=== PATIENT | female | born 1965 | race Caucasian/White ===

== ENCOUNTER 2019-04-25 02:42 | Inpatient (IN) | payer OTHER ==
[2019-04-25] MEDS ORDERED: LIDOCAINE 5% TOPICAL PATCH TP ONE (02:51)
[2019-04-25] MEDS ORDERED: KETOROLAC TROMETHAMINE 15 MG/ML VIAL IVPUSH ONE (02:59)
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
[2019-04-25] MEDS ORDERED: KETOROLAC TROMETHAMINE 15 MG/ML VIAL ONE (03:23)
[2019-04-25 03:30] LABS: BASO % 0.3 % (0-2.0); EOS % 0.9 % (0-4.5); HEMATOCRIT 49.4 % (32.4-45.2); HEMOGLOBIN 17.2 GM/dL (10.7-15.3); LYMPH % 12.5 % (8-40); MCH 32.2 pg (25.7-33.7); MCHC 34.7 g/dl (32.0-36.0); MEAN CELL VOLUME 92.7 fl (80-96); MONO % 7.4 % (3.8-10.2); NEUT % 78.9 % (42.8-82.8); PLATELET COUNT 229 K/MM3 (134-434); RBC 5.33 M/mm3 (3.60-5.2); RDW 15.9 % (11.6-15.6); WHITE BLOOD COUNT 12.3 K/mm3 (4.0-10.0)
--- NOTE | 2019-04-25 03:38 | PDOC ---
Attending Attestation - Resident Resident Name: Gianni Wright - ED Attending Attestation I have performed the following: I have examined & evaluated the patient, The case was reviewed & discussed with the resident, I agree w/resident's findings & plan - HPI HPI: 05/06/19 20:06 Amara Christy is a 53F HTN, HLD, pre-DM, asthma presenting with R flank pain. - Physicial Exam PE: 05/06/19 20:06 Agree with resident exam - Medical Decision Making 04/25/19 03:58 Pt will be admitted for pyelo and UTI and flank pain and nausea and IV antibiotics. Questionable rupture of her calyx. Please eval with renal consultation. 04/25/19 05:17 Pt has right hydronephrosis and pyelo and stranding around the kidney 04/25/19 05:19 Patient Name: AMARA CHRISTY THIS IS A PRELIMINARY REPORT FROM [facility]AG[facility]EL [facility]SEL[facility] DATE OF SERVICE: 2019-04-25 03:21:51 IMAGES: [id number] EXAM: CT abdomen and pelvis without contrast HISTORY: Rule out nephrolithiasis COMPARISON: None. FINDINGS: Lung bases are clear. The visualized cardiac chambers are normal size and configuration. Mild right hydronephrosis is noted secondary to 2 mm distal ureteral stone. Moderate perinephric edema could indicate a ruptured calyx but there is no loculated urinoma. No other stones are identified. Normal liver, gallbladder, pancreas, spleen, adrenal glands and left kidney. The stomach and abdominal small and large bowel are normal. There is no aortic aneurysm. There is no significant retroperitoneal lymphadenopathy. The pelvic small and large bowel are normal. There is no evidence of appe ndicitis. The uterus and adnexal structures are normal. Urinary bladder is unremarkable. There is no pelvic free fluid. No discrete pelvic lymphadenopathy is identified. IMPRESSION: Mild right hydronephrosis secondary to a 2 mm distal ureteral stone with possible ruptured calyx. Discharge - Discharge Information Problems reviewed: Yes Clinical Impression/Diagnosis: Acute flank pain, Ureteral calculus, Pyelonephritis Condition: Stable Disposition: HOME - Follow up/Referral - Patient Discharge Instructions - Post Discharge Activity
[2019-04-25 03:47] LABS: INR 0.87 (0.83-1.09); PROTHROMBIN TIME (PATIENT) 10.2 SEC (9.7-13.0)
[2019-04-25] MEDS ORDERED: LACTATED RINGERS SOLUTION 1000 ML INFUS.BAG IV ONE (03:47)
[2019-04-25 03:58] LABS: EPI CELLS 17 /HPF (0-5/HPF); HYALINE CASTS 0 /lpf (0-8); URINE APPEARANCE CLEAR; URINE BACTERIA 144 /hpf (NEGATIVE); URINE BILIRUBIN NEGATIVE (NEGATIVE); URINE COLOR YELLOW; URINE GLUCOSE (UA) NEGATIVE (NEGATIVE); URINE KETONE NEGATIVE (NEGATIVE); URINE LEUK ESTERASE NEGATIVE (NEGATIVE); URINE NITRITE NEGATIVE (NEGATIVE); URINE PROTEIN NEGATIVE (NEGATIVE); URINE RBC 930 /hpf (0-4); URINE UROBILINOGEN 0.2 mg/dL (0.2-1.0); URINE WBC 5 /hpf (0-5)
[2019-04-25 03:59] LABS: ALBUMIN 4.1 g/dl (3.4-5.0); BILIRUBIN,TOTAL 0.8 mg/dL (0.2-1); BLOOD UREA NITROGEN 25.7 mg/dL (7-18); CREATININE 1.3 mg/dL (0.55-1.3); POTASSIUM 3.6 mmol/L (3.5-5.1); TOT PROT 8.3 g/dl (6.4-8.2)
[2019-04-25] MEDS ORDERED: SODIUM CHLORIDE 1,000 ML IV STA (04:00)
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
[2019-04-25] MEDS ORDERED: ACETAMINOPHEN 325 MG TABLET (FP) PO PRN (06:01)
[2019-04-25] MEDS ORDERED: ALBUTEROL SO4 2.5/IPRATROPIUM 0.5 INH SOL 3 ML VIAL.NEB. NEB PRN (06:10)
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
[2019-04-25 08:26] VITALS: BMI 31.5
[2019-04-25 08:53] LABS: BASO % 0.3 % (0-2.0); EOS % 0.7 % (0-4.5); HEMATOCRIT 45.1 % (32.4-45.2); HEMOGLOBIN 15.3 GM/dL (10.7-15.3); LYMPH % 20.6 % (8-40); MCH 31.5 pg (25.7-33.7); MCHC 33.9 g/dl (32.0-36.0); MEAN PLT VOLUME 7.9 fl (7.5-11.1); MONO % 8.8 % (3.8-10.2); NEUT % 69.6 % (42.8-82.8); PLATELET COUNT 203 K/MM3 (134-434); RBC 4.85 M/mm3 (3.60-5.2); RDW 15.6 % (11.6-15.6); WHITE BLOOD COUNT 9.1 K/mm3 (4.0-10.0)
--- NOTE | 2019-04-25 08:55 | PN ---
Teaching Attending Note Name of Resident: Nico Cox ATTENDING PHYSICIAN STATEMENT I saw and evaluated the patient. I reviewed the resident's note and discussed the case with the resident. I agree with the resident's findings and plan as documented. SUBJECTIVE:Patient feels improved less flank pain still c/o hematuria OBJECTIVE: Vital Signs Temperature 98.4 F 04/25/19 08:16 Pulse Rate 79 04/25/19 08:16 Respiratory Rate 20 04/25/19 08:16 Blood Pressure 149/75 04/25/19 08:16 O2 Sat by Pulse Oximetry (%) 96 04/25/19 08:34 HEENT: Mm moist, no anemia NECK: No JVD No Bruit CHEST: CTA B/L CVS: S1S2 R no m/g/r ABD: Non tender BS + EXT: No CVA tenderness, No Edema feet, Pulses + SMALL OFFSET PRINTER: AOX3 non focal CBC, BMP 04/25/19 08:35 Active Medications Acetaminophen (Tylenol -) 650 mg PO Q4H PRN PRN Reason: PAIN LEVEL 6-10 Albuterol/Ipratropium (Duoneb -) 1 amp NEB RQID PRN PRN Reason: ASTHMA Atorvastatin Calcium (Lipitor -) 10 mg PO HS [facility] Enoxaparin Sodium (Lovenox -) 40 mg SQ DAILY JEREMIAH Hydrochlorothiazide (Hctz -) 12.5 mg PO DAILY JEREMIAH Sodium Chloride (Normal Saline -) 1,000 mls @ 75 mls/hr IV ASDIR JEREMIAH Levofloxacin (Levaquin 500 Mg Premixed Ivpb -) 500 mg in 100 mls @ 100 mls/hr IVPB ONCE ONE; Protocol Stop: 04/26/19 06:59 Lisinopril (Prinivil) 10 mg PO HS JEREMIAH Tamsulosin HCl (Flomax -) 0.4 mg PO DAILY@0830 [facility] ASSESSMENT AND PLAN:53 yrs old F with H/O Mild intermittent asthma nd HTN present with Flank pain hematuria Problem List - Problems (1) Acute flank pain Assessment/Plan: Due to renal calculi improved will cont IV Hydration Code(s): R10.9 - UNSPECIFIED ABDOMINAL PAIN (2) Ureteral calculus Assessment/Plan: 2 mm evaluted by Gu recommonded Flomax and Hydration Code(s): N20.1 - CALCULUS OF URETER (3) HTN (hypertension) Assessment/Plan: Cont home meds Problems reviewed: Yes Code(s): I10 - ESSENTIAL (PRIMARY) HYPERTENSION
[2019-04-25] MEDS: LORATADINE 10 MG TABLET PO SCH (09:15)
[2019-04-25] MEDS: TAMSULOSIN HCL 0.4 MG CAP PO SCH (09:15)
[2019-04-25] MEDS: ENOXAPARIN NA (PORCINE) 40 MG/0.4 ML DISP.SYRIN SQ SCH (09:15)
[2019-04-25] MEDS: SODIUM CHLORIDE 1,000 ML IV SCH (09:22)
[2019-04-25 09:28] LABS: ALBUMIN 3.4 g/dl (3.4-5.0); CALCIUM 8.5 mg/dL (8.5-10.1); CREATININE 1.4 mg/dL (0.55-1.3); MAGNESIUM 1.9 mg/dL (1.8-2.4); POTASSIUM 3.7 mmol/L (3.5-5.1)
[2019-04-25] MEDS ORDERED: HYDROCHLOROTHIAZIDE 12.5 MG CAPSULE (FP) PO SCH (10:00)
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
--- NOTE | 2019-04-25 15:15 | CON.GU ---
Consult Consult Specialty:: Referred by:: medicine Reason for Consultation:: ureteral calculus, renal colic - History of Present Illness Chief Complaint: ureteral calculus, renal colic History of Present Illness: 53 year old woman with 1 day of flank pain and nausea. CT scan with mild hydro and a 2mm UVJ stone. No evidence of infection or sepsis. This his her first stone. - History Source History Provided By: Patient Limitations to Obtaining History: No Limitations - Past Medical History Pulmonary: Yes: Asthma, Bronchitis, COPD. No: Cancer, O2 Dependent, Pneumonia, Previously Intubated, Pulmonary Embolus, Pulmonary Fibrosis Renal/: No: Renal Failure, Renal Inusuff, BPH, Cancer, Hematuria, Hemodialysis, Neurogenic Bladder, Renal Calculi, UTI, Other ...: No - Alcohol/Substance Use Hx Alcohol Use: No - Smoking History Smoking history: Current every day smoker Have you smoked in the past 12 months: Yes Aproximately how many cigarettes per day: 10 Home Medications - Allergies Allergies/Adverse Reactions: Allergies Allergy/AdvReac Type Severity Reaction Status Date / Time Penicillins Allergy Rash Verified 04/25/19 02:43 tetracycline Allergy Rash Verified 04/25/19 02:43 - Home Medications Home Medications: Ambulatory Orders Atorvastatin Ca [Lipitor] 10 mg PO HS 04/26/17 Cetirizine HCl [All Day Allergy] 10 mg PO ASDIR 04/26/17 Hydrochlorothiazide [Hctz -] 25 mg PO DAILY 04/26/17 Salmeterol/Fluticasone [Advair 100Mcg/50Mcg -] 1 inh IH ASDIR 04/26/17 Fluticasone/Vilanterol [Breo Ellipta 200-25 Mcg INH] 1 each IH DAILY 04/25/19 Latanoprost 1 gm OU DAILY 04/25/19 Review of Systems - Review of Systems Genitourinary: reports: Flank Pain Physical Exam- Vital Signs: Vital Signs Temperature 98.4 F 04/25/19 08:16 Pulse Rate 79 04/25/19 08:16 Respiratory Rate 20 04/25/19 08:16 Blood Pressure 149/75 04/25/19 08:16 O2 Sat by Pulse Oximetry (%) 96 04/25/19 08:34 Renal/: No: CVA Tenderness - Left, CVA Tenderness - Right Kidneys: No: Flank Pain Left, FLank Pain Right Labs: CBC, BMP 04/25/19 08:35 04/25/19 08:35 Imaging - Results Cat Scan: Report Reviewed Problem List - Problems (1) Ureteral calculus Assessment/Plan: based on size and position, the stone has a very high likelihood of self passage. no infection or sepsis. recommend hydration, flomax. pain meds. Code(s): N20.1 - CALCULUS OF URETER
--- NOTE | 2019-04-25 15:48 | PN ---
Physical Exam: SUBJECTIVE: Patient seen and examined at bedside. Reports improvement in pain OBJECTIVE: Vital Signs Period Temp Pulse Resp BP Sys/Carnes Pulse Ox Last 24 Hr 97.1 F-98.4 F 79-93 17-20 117-153/70-93 96-98 GENERAL: A&Ox3, no acute distress EYES: PERRLA, EOMI ENT: Moist mucus membranes NECK: No JVD LUNGS: CTA, no wheezes HEART: RRR, no murmurs ABDOMEN: Soft, nontender, BS present MUSCULOSKELETAL: Mild R sided CVA tenderness EXTREMITIES: 2+ pulses, no edema. NEUROLOGICAL: Cranial nerves II-XII intact. Laboratory Results - last 24 hr 04/25/19 04/25/19 04/25/19 03:20 03:20 03:20 WBC 12.3 H RBC 5.33 H Hgb 17.2 H Hct 49.4 H MCV 92.7 MCH 32.2 MCHC 34.7 RDW 15.9 H Plt Count 229 MPV 8.0 Absolute Neuts (auto) 9.7 H Neutrophils % 78.9 Lymphocytes % 12.5 Monocytes % 7.4 Eosinophils % 0.9 Basophils % 0.3 Nucleated RBC % 0 PT with INR 10.20 INR 0.87 Sodium Potassium Chloride Carbon Dioxide Anion Gap BUN Creatinine Est GFR (CKD-EPI)AfAm Est GFR (CKD-EPI)NonAf Random Glucose Calcium Phosphorus Magnesium Total Bilirubin AST ALT Alkaline Phosphatase Total Protein Albumin Urine Color Yellow Urine Appearance Clear Urine pH 5.0 Ur Specific [place] 1.019 Urine Protein Negative Urine Glucose (UA) Negative Urine Ketones Negative Urine Blood 3+ H Urine Nitrite Negative Urine Bilirubin Negative Urine Urobilinogen 0.2 Ur Leukocyte Esterase Negative Urine WBC (Auto) 5 Urine RBC (Auto) 930 Urine Casts (Auto) 0 U Epithel Cells (Auto) 17 Urine Bacteria (Auto) 144 04/25/19 04/25/19 04/25/19 03:20 08:35 08:35 WBC 9.1 RBC 4.85 Hgb 15.3 Hct 45.1 MCV 93.0 MCH 31.5 MCHC 33.9 RDW 15.6 Plt Count 203 MPV 7.9 Absolute Neuts (auto) 6.4 Neutrophils % 69.6 Lymphocytes % 20.6 D Monocytes % 8.8 Eosinophils % 0.7 Basophils % 0.3 Nucleated RBC % 0 PT with INR INR Sodium 136 135 L Potassium 3.6 3.7 Chloride 99 101 Carbon Dioxide 26 26 Anion Gap 11 9 BUN 25.7 H 26.0 H Creatinine 1.3 1.4 H Est GFR (CKD-EPI)AfAm 53.86 49.25 Est GFR (CKD-EPI)NonAf 46.47 42.49 Random Glucose 116 H 107 H Calcium 9.0 8.5 Phosphorus 4.0 Magnesium 1.9 Total Bilirubin 0.8 1.0 AST 20 17 ALT 19 13 Alkaline Phosphatase 121 H 103 Total Protein 8.3 H 7.0 Albumin 4.1 3.4 Urine Color Urine Appearance Urine pH Ur Specific [place] Urine Protein Urine Glucose (UA) Urine Ketones Urine Blood Urine Nitrite Urine Bilirubin Urine Urobilinogen Ur Leukocyte Esterase Urine WBC (Auto) Urine RBC (Auto) Urine Casts (Auto) U Epithel Cells (Auto) Urine Bacteria (Auto) Active Medications Generic Name Dose Route Start Last Admin Trade Name Freq PRN Reason Stop Dose Admin Acetaminophen 650 mg 04/25/19 06:01 Tylenol - PO Q4H PRN PAIN LEVEL 6-10 Albuterol/Ipratropium 1 amp 04/25/19 06:10 Duoneb - NEB RQID PRN ASTHMA Atorvastatin Calcium 10 mg 04/25/19 22:00 Lipitor - PO HS JEREMIAH Enoxaparin Sodium 40 mg 04/25/19 10:00 04/25/19 09:15 Lovenox - SQ 40 mg DAILY JEREMIAH Administration Hydrochlorothiazide 12.5 mg 04/25/19 10:00 04/25/19 09:15 Hctz - PO 12.5 mg DAILY JEREMIAH Administration Sodium Chloride 1,000 mls @ 75 mls/hr 04/25/19 06:15 04/25/19 09:22 Normal Saline - IV 75 mls/hr ASDIR JEREMIAH Administration Levofloxacin 500 mg in 100 mls @ 100 mls/hr 04/26/19 06:00 Levaquin 500 Mg Premixed Ivpb - IVPB 04/26/19 06:59 ONCE ONE Protocol Lisinopril 10 mg 04/25/19 22:00 Prinivil PO HS JEREMIAH Loratadine 10 mg 04/25/19 10:00 04/25/19 09:15 Claritin - PO 10 mg DAILY JEERMIAH Administration Tamsulosin HCl 0.4 mg 04/25/19 08:30 04/25/19 09:15 Flomax - PO 0.4 mg DAILY@0830 [facility] Administration ASSESSMENT/PLAN: 53 year old female with hypertension, hyperlipidemia, pre-diabetes, asthma, glaucoma, cervical radiculopathy here for R sided nephrolithiasis #Nephrolithiasis: improved today, 2mm stone -urology consult appreciated -CT significant for moderate RIGHT hydronephrosis 2mm distal ureteral stone and possible ruptured calyx; fat stranding at RIGHT kidney -continue flomax -continue fluids -continue pain control -continue levaquin for now -monitor creatinine #Hypertension -continue lisinopril #Hyperlipidemia -continue atorvastatin #Pre-Diabetes - monitor #FEN -fluids @ 75cc/hr -lytes normal -diet ordered #Prophylaxis -lovenox #DIsposition -anticipate DC tomorrow pending creatinine Visit type - Emergency Visit Emergency Visit: No - New Patient This patient is new to me today: Yes Date on this admission: 04/25/19 - Critical Care Critical Care patient: No ATTENDING PHYSICIAN STATEMENT I saw and evaluated the patient. I reviewed the resident's note and discussed the case with the resident. I agree with the resident's findings and plan as documented. SUBJECTIVE: OBJECTIVE: ASSESSMENT AND PLAN:
--- NOTE | 2019-04-25 16:08 | EKG ---
Test Reason : Blood Pressure : / mmHG Vent. Rate : 095 BPM Atrial Rate : 095 BPM P-R Int : 188 ms QRS Dur : 078 ms QT Int : 372 ms P-R-T Axes : 054 -07 075 degrees QTc Int : 467 ms NORMAL SINUS RHYTHM POSSIBLE LEFT ATRIAL ENLARGEMENT BORDERLINE ECG NO PREVIOUS ECGS AVAILABLE Confirmed by ADOLPH DICKINSON, JANETH ([id number]) on 04/25/2019 4:07:54 PM Referred By: Confirmed By:JANETH FARFAN MD
[2019-04-25] MEDS ORDERED: LISINOPRIL 10 MG TABLET (FP) PO SCH (22:00)
[2019-04-25] MEDS ORDERED: LIDOCAINE PATCH REMOVAL MC SCH (22:00)
[2019-04-25] MEDS ORDERED: ATORVASTATIN CA 10 MG TABLET (FP) PO SCH (22:00)
[2019-04-26] MEDS: SODIUM CHLORIDE 1,000 ML IV SCH (06:37)
[2019-04-26] MEDS: TAMSULOSIN HCL 0.4 MG CAP PO SCH (08:20)
[2019-04-26 09:44] LABS: BASO % 0.4 % (0-2.0); HEMOGLOBIN 14.2 GM/dL (10.7-15.3); LYMPH % 23.7 % (8-40); MCH 31.8 pg (25.7-33.7); MCHC 33.8 g/dl (32.0-36.0); MEAN CELL VOLUME 94.1 fl (80-96); MEAN PLT VOLUME 7.9 fl (7.5-11.1); MONO % 10.8 % (3.8-10.2); NEUT % 62.1 % (42.8-82.8); PLATELET COUNT 175 K/MM3 (134-434); RBC 4.46 M/mm3 (3.60-5.2); RDW 15.4 % (11.6-15.6); WHITE BLOOD COUNT 5.3 K/mm3 (4.0-10.0)
[2019-04-26] MEDS: LORATADINE 10 MG TABLET PO SCH (09:45)
[2019-04-26] MEDS: ENOXAPARIN NA (PORCINE) 40 MG/0.4 ML DISP.SYRIN SQ SCH (09:45)
[2019-04-26 10:51] LABS: BLOOD UREA NITROGEN 21.9 mg/dL (7-18); CALCIUM 8.2 mg/dL (8.5-10.1); CREATININE 1.1 mg/dL (0.55-1.3); POTASSIUM 3.1 mmol/L (3.5-5.1)
[2019-04-26] MEDS ORDERED: POTASSIUM CHLORIDE TABS 20 MEQ TABLET.ER (FP) PO ONE (11:00)
[2019-04-26] MEDS ORDERED: PT OWN MED DRAWER 7, Y5N ONE (11:08)
[2019-04-26 12:01] VITALS: BP 114/69; PULSE 69; TEMP 97.9
[2019-04-26] MEDS ORDERED: ALBUTEROL SO4 2.5/IPRATROPIUM 0.5 INH SOL 3 ML VIAL.NEB. NEB PRN (12:09)
--- NOTE | 2019-04-26 12:09 | PN ---
Progress Note (short form) - Note Progress Note: Feels a little better today. [place] like she was wheezing overnight, now feels better (Did not have Breo). Intake & Output 04/23/19 04/24/19 04/25/19 04/26/19 23:59 23:59 23:59 23:59 Intake Total 1700 Output Total 700 Balance 1000 Weight 172 lb 4 oz Last Vital Signs Temp Pulse Resp BP Pulse Ox 97.9 F 69 20 114/69 96 04/26/19 09:00 04/26/19 09:00 04/26/19 09:00 04/26/19 09:00 04/26/19 09:00 Active Medications Acetaminophen (Tylenol -) 650 mg PO Q4H PRN PRN Reason: PAIN LEVEL 6-10 Albuterol/Ipratropium (Duoneb -) 1 amp NEB RQID PRN PRN Reason: ASTHMA Atorvastatin Calcium (Lipitor -) 10 mg PO [facility] Last Admin: 04/25/19 21:55 Dose: 10 mg Documented by: Enoxaparin Sodium (Lovenox -) 40 mg SQ DAILY [facility] Last Admin: 04/26/19 09:45 Dose: 40 mg Documented by: Sodium Chloride (Normal Saline -) 1,000 mls @ 75 mls/hr IV ASDIR [facility] Last Admin: 04/26/19 06:37 Dose: 75 mls/hr Documented by: Lisinopril (Prinivil) 10 mg PO [facility] Last Admin: 04/25/19 21:56 Dose: Not Given Documented by: Loratadine (Claritin -) 10 mg PO DAILY [facility] Last Admin: 04/26/19 09:45 Dose: 10 mg Documented by: Tamsulosin HCl (Flomax -) 0.4 mg PO DAILY@0830 [facility] Last Admin: 04/26/19 08:20 Dose: 0.4 mg Documented by: Constitutional: Yes: No Distress, Obese Eyes: Yes: Conjunctiva Clear, EOM Intact HENT: Yes: Atraumatic, Normocephalic Neck: Yes: Supple, Trachea Midline Cardiovascular: Yes: Regular Rate and Rhythm Respiratory: No: Accessory Muscle Use, Rales, Rhonchi, SOB, SOB on Exertion, Stridor, Tachypnea, Wheezes ...Inspection: Yes: WNL ...Clubbing: No Gastrointestinal: Yes: Normal Bowel Sounds, Soft. No: Rectal Bleeding Renal/: Yes: CVA Tenderness - Right Musculoskeletal: Yes: WNL Extremities: Yes: WNL Edema: No Peripheral Pulses WNL: Yes Integumentary: Yes: WNL Neurological: Yes: WNL, Alert, Oriented ...Motor Strength: WNL Psychiatric: Yes: WNL, Alert, Oriented Labs: Laboratory Results - last 24 hr 04/26/19 04/26/19 09:20 09:20 WBC 5.3 RBC 4.46 Hgb 14.2 Hct 42.0 MCV 94.1 MCH 31.8 MCHC 33.8 RDW 15.4 Plt Count 175 MPV 7.9 Absolute Neuts (auto) 3.3 Neutrophils % 62.1 Lymphocytes % 23.7 Monocytes % 10.8 H Eosinophils % 3.0 D Basophils % 0.4 Nucleated RBC % 0 Sodium 138 Potassium 3.1 L Chloride 103 Carbon Dioxide 28 Anion Gap 7 L BUN 21.9 H Creatinine 1.1 Est GFR (CKD-EPI)AfAm 65.92 Est GFR (CKD-EPI)NonAf 56.87 Random Glucose 141 H Calcium 8.2 L Problem List - Problems (1) COPD (chronic obstructive pulmonary disease) Code(s): J44.9 - CHRONIC OBSTRUCTIVE PULMONARY DISEASE, UNSPECIFIED (2) Smoker Code(s): F17.200 - NICOTINE DEPENDENCE, UNSPECIFIED, UNCOMPLICATED (3) Acute flank pain Code(s): R10.9 - UNSPECIFIED ABDOMINAL PAIN (4) HTN (hypertension) Code(s): I10 - ESSENTIAL (PRIMARY) HYPERTENSION (5) Pyelonephritis Code(s): N12 - TUBULO-INTERSTITIAL NEPHRITIS, NOT SPCF ACUTE OR CHRONIC (6) Ureteral calculus Code(s): N20.1 - CALCULUS OF URETER Assessment/Plan BD TX ordered PRN No indication for Systemic steroids O2 as needed Smoking cessation was discussed PFTs as an outpatient Patient to continue at home There is no Pulmonary contraindication for DC planning Dr Amin Problem List - Problems (1) COPD (chronic obstructive pulmonary disease) Code(s): J44.9 - CHRONIC OBSTRUCTIVE PULMONARY DISEASE, UNSPECIFIED (2) Smoker Code(s): F17.200 - NICOTINE DEPENDENCE, UNSPECIFIED, UNCOMPLICATED (3) Acute flank pain Code(s): R10.9 - UNSPECIFIED ABDOMINAL PAIN (4) HTN (hypertension) Code(s): I10 - ESSENTIAL (PRIMARY) HYPERTENSION (5) Pyelonephritis Code(s): N12 - TUBULO-INTERSTITIAL NEPHRITIS, NOT SPCF ACUTE OR CHRONIC (6) Ureteral calculus Code(s): N20.1 - CALCULUS OF URETER
--- NOTE | 2019-04-26 13:19 | DS ---
Physical Examination Vital Signs: Vital Signs Temperature 97.9 F 04/26/19 09:00 Pulse Rate 69 04/26/19 09:00 Respiratory Rate 20 04/26/19 09:00 Blood Pressure 114/69 04/26/19 09:00 O2 Sat by Pulse Oximetry (%) 96 04/26/19 09:00 HEENT: Mm moist, no anemia NECK: No JVD No Bruit CHEST: CTA B/L CVS: S1S2 R no m/g/r ABD: Non tender BS + EXT: No CVA tenderness, No Edema feet, Pulses + [employer]: [employer]OX[employer] non focal Labs: CBC, BMP 04/26/19 09:20 04/26/19 09:20 Discharge Summary Problems reviewed: Yes Reason For Visit: ACUTE FLANK PAIN,PYELONEPHRITIS,CALCULUS OF Current Active Problems Acute flank pain (Acute) COPD (chronic obstructive pulmonary disease) (Acute) HTN (hypertension) (Acute) Ureteral calculus (Acute) Health Concerns: 53-year-old female history of hypertension, hypercholesterolemia, prediabetes, mild intermittent asthma, cervical radiculopathy presents to the ED with complaint of severe right flank pain, with hematuria, nausea, vomiting and urinary urgency on arrival to ED patient CBC BMP was normal UA shows RBCs, CT abdomen shows moderate RIGHT hydronephrosis 2mm distal ureteral stone and possible ruptured calyx; fat stranding at RIGHT kidney, evaluated by the urology consult recommended no antibiotic considering small size of stone recommended IV hydration and Flomax, during the course of hospitalization patient developed mild hypokalemia repleted and educated to consume high potassium diet, at the t natividad of examination patient was pain-free. Condition: Stable - Instructions Diet, Activity, Other Instructions: You were admitted to the hospital for the treatment of R sided kidney stone You were found not to have a urinary tract infection Medical Recommendations -The stone was small (2mm) and will come out on its own -Stay well hydrated, 6-8 glasses of water daily - try to stay away from alcohol and sodas -Please take tamsulosin (flomax) 0.4mg once daily until you see your primary care physician within 1 week -please take lisinopril and hydrochlorothiazide once daily for your blood pressure, please follow with your primary care physician to discuss continuing medications for your pressure Take the rest of your home medications as previously prescribed If you experience severe fevers, chills, nausea, vomiting, diarrhea, chest pain or shortness of breath, please return to the hospital immediately. Referrals: Balbir Oliver MD [Staff Physician] - 2 Weeks Ekta Barnhart MD [Primary Care Provider] - 1 Week Disposition: HOME - Home Medications Comprehensive Discharge Medication List: Ambulatory Orders Atorvastatin Ca [Lipitor] 10 mg PO HS 04/26/17 Cetirizine HCl [All Day Allergy] 10 mg PO ASDIR 04/26/17 Hydrochlorothiazide [Hctz -] 25 mg PO DAILY 04/26/17 Salmeterol/Fluticasone [Advair 100Mcg/50Mcg -] 1 inh IH ASDIR 04/26/17 Fluticasone/Vilanterol [Breo Ellipta 200-25 Mcg INH] 1 each IH DAILY 04/25/19 Hydrochlorothiazide [Hctz -] 12.5 mg PO DAILY #14 cap 04/25/19 Latanoprost 1 gm OU DAILY 04/25/19 Lisinopril [Prinivil] 10 mg PO DAILY #14 tablet 04/25/19 Tamsulosin HCl [Flomax -] 0.4 mg PO DAILY@0830 #7 cap.er.24h 04/25/19
== END 2019-04-26 14:52 | disposition home or self-care (01) | DRG 465 ==
LOC: JER 02:42 → JERBED 05:04 → J6S 08:07
PROVIDERS: ADMIT Internal Medicine; ATTEND Internal Medicine
DX: N13.2 Hydronephrosis with renal and ureteral calculous obstruction (principal); I10 Essential (primary) hypertension; E78.5 Hyperlipidemia, unspecified; R73.03 Prediabetes; F17.210 Nicotine dependence, cigarettes, uncomplicated; E87.6 Hypokalemia; J45.20 Mild intermittent asthma, uncomplicated; H40.9 Unspecified glaucoma; M54.12 Radiculopathy, cervical region; E66.9 Obesity, unspecified; Z68.31 Body mass index [BMI] 31.0-31.9, adult; J32.9 Chronic sinusitis, unspecified; J44.9 Chronic obstructive pulmonary disease, unspecified; Z88.0 Allergy status to penicillin
CPT/HCPCS: 36415; 74176-TC; 80048; 80053; 81003; 83735; 84100; 85025; 85610; 87086; 93005; 93010; 94640; 99285-25; J7030

== ENCOUNTER 2024-08-14 15:55 | Emergency (ER) | payer OTHER ==
[2024-08-14 16:06] VITALS: RESP 18; BMI 28.5
[2024-08-14] MEDS ORDERED: KETOROLAC TROMETHAMINE 15 MG/ML VIAL ONE (17:49)
[2024-08-14] MEDS: KETOROLAC TROMETHAMINE 15 MG/ML VIAL IVPUSH ONE (17:54)
[2024-08-14 18:25] LABS: ABSOLUTE IMMATURE GRANULOCYTES 0.10 x10^3/uL (0.0-0.031); BASOPHILS # 0.11 x10^3/uL (0.01-0.08); EOSINOPHIL % 2.8 % (0.7-5.8); EOSINOPHILS # 0.30 x10^3/uL (0.04-0.36); MCHC 33.2 g/dl (32.2-35.5); MEAN CELL VOLUME 95.2 fl (79.4-94.8); MEAN PLT VOLUME 9.6 fl (9.4-12.3); MONOCYTE # 0.83 x10^3/uL (0.24-0.86); MONOCYTE % 7.7 % (4.7-12.5); RDW 14.2 % (12.3-16.6)
[2024-08-14 18:37] LABS: CO2 31.0 mmol/L (21-32); GLUCOSE,RANDOM 90.0 mg/dL (74-106)
[2024-08-14 18:40] LABS: CREATININE 0.9 mg/dL (0.55-1.3); SGOT/AST 16.0 U/L (15-37); SGPT/ALT 16.0 U/L (13-61)
[2024-08-14 18:42] LABS: TOT PROT 7.0 g/dl (6.4-8.2)
[2024-08-14 18:43] LABS: ALK PHOS 107.0 U/L (45-117)
[2024-08-14] MEDS ORDERED: ACETAMINOPHEN INJECTION 100 ML ONE (19:07)
[2024-08-14] MEDS: ACETAMINOPHEN 1000 MG/100 ML BAG IVPB ONE (19:12)
[2024-08-14] MEDS ORDERED: COLCHICINE 0.6 MG TAB ONE (19:13)
[2024-08-14] MEDS: COLCHICINE 0.6 MG CAP PO ONE (19:16)
[2024-08-14] MEDS ORDERED: POTASSIUM CHLORIDE ORAL LIQUID 20 MEQ/15 ML ONE (19:17)
[2024-08-14] MEDS: POTASSIUM CHLORIDE ORAL LIQUID 20 MEQ/15 ML PO ONE (19:20)
[2024-08-14] MEDS ORDERED: CLINDAMYCIN 600MG PREMIX IVPB 600 MG/50 ML BAG IVPB ONE (19:22)
[2024-08-14 19:34] LABS: HCV DIAGNOSTIC IN-HOUSE W/RFLX NON-REACTIVE (NONREACTIVE); HIV INTERPRETATION NEGATIVE (NEGATIVE)
[2024-08-14] MEDS: CLINDAMYCIN IVPB 300 MG in DEXTROSE 5%-WATER - 48 ML IVPB ONE (19:42)
[2024-08-14] MEDS ORDERED: MAGNESIUM SULFATE IN WATER 2 GM/50 ML IVPB IVPB ONE (20:13)
[2024-08-14] MEDS ORDERED: MAGNESIUM 1GM/D5W - 1 GM/100 ML IVPB IVPB ONE ×2 (20:14→20:15)
[2024-08-14] MEDS ORDERED: MAGNESIUM SULF 50% (8.12 MEQ/2 ML-1 GM VIAL) ONE (20:16)
[2024-08-14] MEDS: MAGNESIUM SULF 50% (8.12 MEQ/2 ML-1 GM VIAL) IVPB ONE (20:19)
[2024-08-14] MEDS: KETOROLAC TROMETHAMINE 30 MG/1 ML VIAL IM ONE (23:12)
[2024-08-15 00:59] VITALS: BP 111/77; PULSE 64; TEMP 98.1
[2024-08-15 01:59] LABS: BODY FLUID BASOPHIL 1 %
== END 2024-08-15 02:13 | disposition home or self-care (01) ==
LOC: JER 15:55
PROC: 0S9D3ZX Drainage of Left Knee Joint, Percutaneous Approach, Diagnostic (ICD-10-PCS; principal; 2024-08-14)
PROC: 3E03329 Introduction of Other Anti-infective into Peripheral Vein, Percutaneous Approach (ICD-10-PCS; 2024-08-14)
PROC: 3E033NZ Introduction of Analgesics, Hypnotics, Sedatives into Peripheral Vein, Percutaneous Approach (ICD-10-PCS; 2024-08-14)
PROC: 3E0333Z Introduction of Anti-inflammatory into Peripheral Vein, Percutaneous Approach (ICD-10-PCS; 2024-08-14)
PROC: 3E033GC Introduction of Other Therapeutic Substance into Peripheral Vein, Percutaneous Approach (ICD-10-PCS; 2024-08-14)
DX: M10.9 Gout, unspecified (principal); M25.562 Pain in left knee; M25.462 Effusion, left knee
CPT/HCPCS: 36415; 73562-TC-LT-FY; 80053; 82945; 84560; 85025; 85651; 86140; 86803; 87070; 87075; 87205; 87389; 89060; 99284-25